=== PATIENT | male | born 1965 | race Caucasian/White ===

== ENCOUNTER 2016-12-26 08:37 | Outpatient (RCR) | payer BC ==
[~2016-12-26 08:37] MED LIST: EFFEXOR 3737.5 MG/TA PO; EFFEXOR-XR150 MG PO; KLONOPIN 0.5MG0.5 MG PO; KLONOPIN 1MG1 MG PO; LIPITOR20 MG PO; LUNESTA3 MG PO; MULTI VITAMINS1 TAB PO; NORCO 325 MG-51 TAB PO; NORCO 325 MG-7.1 TAB PO; OMEGA 31000 MG; SEROQUEL 2525 MG/TAB PO
== END 2016-12-30 12:51 ==
LOC: MKS.ESL.PT 08:37
DX: Z01.818 Encounter for other preprocedural examination (principal); M25.861 Other specified joint disorders, right knee; Z74.09 Other reduced mobility

== ENCOUNTER 2017-05-22 14:57 | Outpatient (RCR) | payer BC | END 2017-05-25 08:52 | disposition home or self-care (01) | LOC: MKS.ESL.PT 14:57 | DX: Z01.818 Encounter for other preprocedural examination (principal); M75.21 Bicipital tendinitis, right shoulder; M25.511 Pain in right shoulder ==

== ENCOUNTER 2017-08-31 08:00 | Outpatient (RCR) | payer BC | END 2017-09-08 | disposition home or self-care (01) | LOC: MKS.ESL.PT | DX: Z47.89 Encounter for other orthopedic aftercare (principal) ==

== ENCOUNTER 2017-10-05 08:00 | Outpatient (RCR) | payer BC | END 2017-10-12 12:41 | disposition home or self-care (01) | LOC: MKS.ESL.PT 08:00 | DX: Z47.89 Encounter for other orthopedic aftercare (principal) ==

== ENCOUNTER 2017-12-23 07:54 | Outpatient (RCR) | payer BC | END 2017-12-23 10:44 | disposition home or self-care (01) | LOC: MKS.ESL.PT 07:54 | DX: Z01.818 Encounter for other preprocedural examination (principal) ==

== ENCOUNTER 2018-03-12 08:15 | Outpatient (RCR) | payer BC | END 2018-04-22 | disposition home or self-care (01) | LOC: MKS.ESL.PT | DX: Z47.1 Aftercare following joint replacement surgery (principal); Z96.651 Presence of right artificial knee joint ==

== ENCOUNTER → 2022-03-03 | Outpatient (RCR) | payer BC | END | disposition home or self-care (01) | LOC: MKS.ESL.PT | DX: M51.36 Other intervertebral disc degeneration, lumbar region (principal); M43.16 Spondylolisthesis, lumbar region; E66.09 Other obesity due to excess calories; Z68.39 Body mass index [BMI] 39.0-39.9, adult ==

== ENCOUNTER 2023-01-30 11:15 | Outpatient (RCR) | payer BC | END 2023-01-31 | disposition home or self-care (01) | LOC: WSOT | DX: M25.521 Pain in right elbow (principal); M25.522 Pain in left elbow; M67.823 Other specified disorders of tendon, right elbow; M67.824 Other specified disorders of tendon, left elbow ==